=== PATIENT | male | born 1990 | race Caucasian/White ===

== ENCOUNTER 2018-02-18 13:58 | Emergency (ER) | payer BC, OTHER ==
[~2018-02-18] VITALS: Ht 175.3 cm; Wt 104.5 kg
[2018-02-18 15:12] LABS: APPEARANCE,URINE CLEAR (CLEAR); BILIRUBIN,URINE NEGATIVE (NEGATIVE); GLUCOSE, URINE (UA) NEGATIVE (NEGATIVE); KETONES,URINE TRACE mg/dL (NEGATIVE); LEUKOCYTE ESTERASE ,URINE NEGATIVE (NEGATIVE); NITRATE,URINE NEGATIVE (NEGATIVE); OCCULT BLOOD,URINE LARGE (NEGATIVE); PROTEIN,URINE NEGATIVE (NEGATIVE); UROBILINOGEN,URINE 0.2 mg/dL (<=1.0)
[2018-02-18 15:19] LABS: BACTERIA,URINE None Seen /HPF (None Seen); SQUAMOUS EPITHELIAL CELL,UR Rare /LPF (None Seen); WBC,URINE None Seen /HPF (0-5)
[2018-02-18] MEDS ORDERED: AZITHROMYCIN 250 MG TABLET PO ONE (16:00)
[2018-02-18] MEDS ORDERED: LIDOCAINE/PF 1% 2 ML VIAL IM ONE (16:00)
[2018-02-18] MEDS ORDERED: CefTRIAXone SODIUM 1 GM/VIAL IM ONE (16:00)
[2018-02-18 16:06] VITALS: BP 125/87
== END 2018-02-18 16:24 | disposition home or self-care (01) ==
LOC: EMS 14:34
DX: N34.2 Other urethritis (principal); J86.9 Pyothorax without fistula
CPT/HCPCS: 81001; 87491; 87591; 96372; 99283; J0696; J3490